=== PATIENT | female | born 1975 | race Caucasian/White ===

== ENCOUNTER 2020-03-03 13:28 | Outpatient (REF) | payer OTHER, SELFPAY | END 2020-03-03 13:29 | disposition home or self-care (01) | LOC: HO.HMGCLDS 13:28 | PROVIDERS: PCP Nurse Practitioner Family; Visit Provider Internal Medicine | DX: Z20.828 Contact with and (suspected) exposure to other viral communicable diseases (principal) | CPT/HCPCS: 87635 ==